=== PATIENT | male | born 1985 | race Two or more races ===

== ENCOUNTER 2017-08-17 23:17 | Emergency (ER) | payer OTHER ==
[2017-08-17] MEDS ORDERED: MAG HYDROX/AL HYDROX/SIMETH 30 ML UDCUP PO ONE (23:40)
[2017-08-17] MEDS ORDERED: LIDOCAINE 2% VISCOUS 15 ML UDCUP PO ONE (23:40)
[2017-08-17] MEDS ORDERED: NS 1,000 ML IV ONE (23:48)
[2017-08-17 23:57] LABS: PLATELET COUNT 157 10^3/uL (150-400)
[2017-08-18 00:27] VITALS: BP 107/76
--- NOTE | 2017-08-18 01:00 | EDPHY ---
H & P Stated Complaint: Abd pain, increasing pain x3wk, "gastritis hx w/no relief", "gaining lbs" Time Seen by Provider: 08/17/17 23:34 HPI/ROS: Chief Complaint: Upper abdominal pain HPI: 31-year-old male's been having upper abdominal pain for several months. He has seen physicians for this and had endoscopy which was inconclusive. He was taking omeprazole to 3 days ago when his physicians told with stop. For the last 3 days he has been having worsening epigastric pain. Is worse at night. It is nonradiating. Is up to about an 8/10. It is improved over the course today when he is up and moving about. He has an appointment to have some blood work to check for an ulcer next week by his physicians. He also has appoint with GI doctor in September. No fevers or chills. No nausea or vomiting. No dark black bowel movements or blood in his stool. He does not smoke. Does not drink alcohol. ROS: 10 point Review of Systems is negative except as noted in the HPI. PMH: Denies Social History: No smoking, no alcohol, no recreational drug use Family History: non-contributory Physical Exam: Gen: Awake, Alert, No Distress HEENT: Nose: no rhinorrhea Eyes: PERRLA, EOMI Mouth: Moist mucosa Neck: Supple, no JVD Chest: nontender, lungs clear to auscultation Heart: S1, S2 normal, no murmur Abd: Soft, non-tender, no guarding Back: no CVA tenderness, no midline tenderness Ext: no edema, non-tender Skin: no rash Neuro: CN II-XII intact, Sensation grossly intact, Strength 5/5 in bilateral upper and lower extremities - Personal History Current Tetanus Diphtheria and Acellular Pertussis (TDAP): Unsure - Medical/Surgical History Hx Asthma: No Hx Chronic Respiratory Disease: No Hx Diabetes: No Hx Cardiac Disease: No Hx Renal Disease: No Hx Cirrhosis: No Hx Alcoholism: No Hx HIV/AIDS: No Hx Splenectomy or Spleen Trauma: No Other PMH: "gastritis" - Social History Smoking Status: Current some day smoker Constitutional: Initial Vital Signs Temperature (C) 36.7 C 08/17/17 23:25 Heart Rate 65 08/17/17 23:25 Respiratory Rate 18 08/17/17 23:25 Blood Pressure 127/80 H 08/17/17 23:25 O2 Sat (%) 97 08/17/17 23:25 O2 Delivery Mode Room Air Allergies/Adverse Reactions: No Known Allergies Allergy (Unverified 08/17/17 23:25) Medical Decision Making ED Course/Re-evaluation: Patient's pain has resolved after GI cocktail. His blood work is completely unremarkable. No evidence of acute pancreatitis, cholecystitis, renal functions normal. Symptoms are consistent with reflux. I have instructed him to resume his omeprazole. He should follow up with primary care physician next week for blood testing which I suspect will check for H pylori. He will return for any concerns. - Data Points Laboratory Results: Laboratory Results 08/17/17 23:48 08/17/17 23:48 08/17/17 08/17/17 23:48 23:48 WBC 6.89 10^3/uL 10^3/uL (3.80-9.50) RBC 5.18 10^6/uL 10^6/uL (4.40-6.38) Hgb 15.9 g/dL g/dL (13.7-17.5) Hct 45.4 % % (40.0-51.0) MCV 87.6 fL fL (81.5-99.8) MCH 30.7 pg pg (27.9-34.1) MCHC 35.0 g/dL g/dL (32.4-36.7) RDW 12.6 % % (11.5-15.2) Plt Count 157 10^3/uL 10^3/uL (150-400) MPV 12.0 fL H fL (8.7-11.7) Neut % (Auto) 52.3 % % (39.3-74.2) Lymph % (Auto) 35.8 % % (15.0-45.0) Traill % (Auto) 9.0 % % (4.5-13.0) Eos % (Auto) 1.9 % % (0.6-7.6) Baso % (Auto) 0.7 % % (0.3-1.7) Nucleat RBC Rel Count 0.0 % % (0.0-0.2) Absolute Neuts (auto) 3.60 10^3/uL 10^3/uL (1.70-6.50) Absolute Lymphs (auto) 2.47 10^3/uL 10^3/uL (1.00-3.00) Absolute Monos (auto) 0.62 10^3/uL 10^3/uL (0.30-0.80) Absolute Eos (auto) 0.13 10^3/uL 10^3/uL (0.03-0.40) Absolute Basos (auto) 0.05 10^3/uL 10^3/uL (0.02-0.10) Absolute Nucleated RBC 0.00 10^3/uL 10^3/uL (0-0.01) Immature Gran % 0.3 % % (0.0-1.1) Immature Gran # 0.02 10^3/uL 10^3/uL (0.00-0.10) Sodium 141 mEq/L mEq/L (135-145) Potassium 4.1 mEq/L mEq/L (3.3-5.0) Chloride 107 mEq/L mEq/L (97-110) Carbon Dioxide 22 mEq/l mEq/l (22-31) Anion Gap 12 mEq/L mEq/L (8-16) BUN 11 mg/dL mg/dL (7-23) Creatinine 0.9 mg/dL mg/dL (0.7-1.3) Estimated GFR > 60 Glucose 88 mg/dL mg/dL (70-100) Calcium 9.4 mg/dL mg/dL (8.5-10.4) Total Bilirubin 1.2 mg/dL mg/dL (0.1-1.4) AST 28 IU/L IU/L (17-59) ALT 41 IU/L IU/L (21-72) Alkaline Phosphatase 65 IU/L IU/L (38-126) Total Protein 7.1 g/dL g/dL (6.3-8.2) Albumin 4.3 g/dL g/dL (3.5-5.0) Lipase 31 IU/L IU/L (23-300) Medications Given: Discontinued Medications Al Hydroxide/Mg Hydroxide (Maalox Susp) 30 ml PO ONCE ONE Stop: 08/17/17 23:41 Last Admin: 08/17/17 23:47 Dose: 30 ml Sodium Chloride (Ns) 1,000 mls @ 0 mls/hr IV ONCE ONE; Wide Open PRN Reason: Protocol Stop: 08/17/17 23:49 Last Admin: 08/17/17 23:49 Dose: 1,000 mls Lidocaine (Lidocaine 2% Viscous) 15 ml PO ONCE ONE Stop: 08/17/17 23:41 Last Admin: 08/17/17 23:47 Dose: 15 ml Departure - Departure Disposition: Home, Routine, Self-Care Clinical Impression: GERD (gastroesophageal reflux disease) Condition: Good Instructions: Gastroesophageal Reflux Disease (ED), Diet for Stomach Ulcers and Gastritis (ED) Additional Instructions: Please resume taking her omeprazole as prescribed. Follow up with primary care physician for further testing for possible stomach ulcers. Return to the emergency department for worsening severe pain, uncontrolled nausea or vomiting, dark black bowel movements, or any other concerns. Referrals: CONTRERAS SAMUELS [Other] - As per Instructions
== END 2017-08-18 01:07 | disposition home or self-care (01) ==
DX: K21.9 Gastro-esophageal reflux disease without esophagitis (principal); E86.9 Volume depletion, unspecified; F17.200 Nicotine dependence, unspecified, uncomplicated